=== PATIENT | female | born 1960 | race Caucasian/White ===

== ENCOUNTER 2018-06-21 09:39 | Emergency (ER) | payer SELFPAY ==
[~2018-06-21] VITALS: Ht 172.7 cm; Wt 72.6 kg
[2018-06-21 09:39] VITALS: BP 120/85
--- NOTE | 2018-06-21 10:17 | NUR ---
UNABLE TO DEPART FROM [facility]. D/C HOME STABLE CONDITION.
== END 2018-06-21 12:50 | disposition home or self-care (01) ==
LOC: ER 12:46
DX: K04.7 Periapical abscess without sinus (principal)